=== PATIENT | female | born 1960 | race Caucasian/White ===

== ENCOUNTER 2016-09-06 02:12 | Emergency (ER) | payer OTHER ==
[~2016-09-06] VITALS: Ht 154.9 cm; Wt 99.8 kg
[2016-09-06] MEDS ORDERED: TRAMADOL 50 MG50 MG PO (02:51)
[2016-09-06] MEDS ORDERED: PENICILLIN VK500 M1 PO (02:51)
[2016-09-06 02:55] VITALS: BP 112/78
== END 2016-09-06 02:55 | disposition home or self-care (01) ==
LOC: ER 02:12
DX: K02.9 Dental caries, unspecified (principal); K08.89 Other specified disorders of teeth and supporting structures